=== PATIENT | female | born 1960 | race Caucasian/White ===

== ENCOUNTER 2024-11-17 06:51 | Emergency (ER) | payer BC ==
[~2024-11-17] VITALS: Ht 172.7 cm; Wt 70.3 kg
[2024-11-17 07:16] VITALS: BP 153/75
[2024-11-17] MEDS ORDERED: KETOROLAC TROMETHAMINE 15 MG INJ ONE (07:23)
[2024-11-17] MEDS ORDERED: ONDANSETRON 4 MG/2 ML VIAL ONE (07:23)
[2024-11-17 07:36] LABS: PLATELET COUNT (AUTO) 231 K/uL (179-408); RED BLOOD CELL COUNT(AUTO) 4.31 MIL/uL (3.63-4.92); RED CELL DISTRIBUTION WIDTH 13.1 % (12.3-17.7); WHITE BLOOD COUNT (AUTO) 5.6 K/uL (3.8-11.8)
[2024-11-17] MEDS: IV NORMAL SALINE 1000 ML BAG IV ONE (07:37)
[2024-11-17] MEDS: ONDANSETRON 4 MG/2 ML VIAL IV ONE (07:37)
[2024-11-17] MEDS: KETOROLAC TROMETHAMINE 15 MG INJ IVP ONE (07:37)
[2024-11-17 07:49] LABS: *CLARITY,URINE CLEAR (CLEAR); *COLOR,URINE YELLOW (YELLOW); *KETONES,URINE NEGATIVE (NEGATIVE); *PROTEIN,URINE NEGATIVE (NEGATIVE); *UROBILINOGEN,URINE 0.2 E.U./dl (NORMAL); LEUKOCYTE ESTERASE ,URINE NEGATIVE (NEGATIVE); NITRITE, URINE NEGATIVE (NEGATIVE); UGLUCOSE NEGATIVE (NEGATIVE)
[2024-11-17 07:54] LABS: *BILIRUBIN,URIN 1+ (NEGATIVE); *BLOOD, URINE TRACE (NEGATIVE)
[2024-11-17 08:01] LABS: ASPARTATE AMINOTRANSFERASE 10.0 U/L (15-37); CREATININE 0.7 mg/dL (0.6-1.3); SODIUM SERUM 140.0 mmol/L (136-145); TOTAL PROTEIN, SERUM 6.7 g/dL (6.4-8.2); UREA NITROGEN, BLOOD 13.0 mg/dL (7-18)
[2024-11-17 09:03] LABS: SQUAMOUS EPITHELIAL CELL,UR MODERATE /HPF (NONE SEEN)
[2024-11-17] MEDS ORDERED: FENTANYL CITRATE 100 MCG/2 ML AMPUL ONE (09:46)
[2024-11-17] MEDS ORDERED: LIDOCAINE 5% PATCH TD ONE (09:46)
[2024-11-17] MEDS: LIDOCAINE 5% PATCH TD ONE (09:51)
[2024-11-17] MEDS: FENTANYL CITRATE 100 MCG/2 ML AMPUL IV ONE (09:51)
[2024-11-17] MEDS ORDERED: LIDO30AD10 TP (09:53)
[2024-11-17] MEDS ORDERED: CYCL5TAB PO (09:53)
[2024-11-17] MEDS ORDERED: IBUP-1955 PO (09:53)
[2024-11-17 10:37] VITALS: BP 133/69; TEMP 97.8; O2SAT 96
== END 2024-11-17 10:10 | disposition home or self-care (01) ==
LOC: ER 06:59
DX: M54.50 Low back pain, unspecified (principal); R10.9 Unspecified abdominal pain; R11.0 Nausea; Z88.5 Allergy status to narcotic agent; Z60.2 Problems related to living alone
CPT/HCPCS: 99285; 74176; 96374; 96375; 96361; 80076; 80048; 81001; 83690; 85025; 87086; 36415; J1885; J2405; J3010; J7040; A4606; A4663